=== PATIENT | female | born 1960 | race Caucasian/White ===

== ENCOUNTER 2023-12-12 11:26 | Outpatient (CLI) | payer MEDICAID | END 2023-12-12 23:59 | disposition home or self-care (01) | LOC: RAD 11:26 | PROVIDERS: ATTEND Family Medicine | DX: M25.561 Pain in right knee (principal) | CPT/HCPCS: 73564 ==

== ENCOUNTER 2024-02-11 08:34 | Outpatient (CLI) | payer MEDICAID | END 2024-02-11 23:59 | disposition home or self-care (01) | LOC: MRI 08:34 | PROVIDERS: ATTEND Family Medicine | DX: S83.241A Other tear of medial meniscus, current injury, right knee, initial encounter (principal); M25.561 Pain in right knee; M17.11 Unilateral primary osteoarthritis, right knee; M94.261 Chondromalacia, right knee; X58.XXXA Exposure to other specified factors, initial encounter; Y93.89 Activity, other specified; Y92.89 Other specified places as the place of occurrence of the external cause; Y99.8 Other external cause status | CPT/HCPCS: 73721 ==